=== PATIENT | female | born 1980 | race Hispanic/Latino ===

== ENCOUNTER 2018-06-02 17:38 | Emergency (ER) | payer SELFPAY ==
[2018-06-02] MEDS ORDERED: HYDROCODONE/APAP 7.5/325 MG TAB ONE (18:05)
--- NOTE | 2018-06-02 18:44 | EDPHYS ---
Physician Documentation [facility] Name: Marva Caballero Age: 38 yrs Sex: Female : 1980 Arrival Date: 06/02/2018 Time: 17:41 Bed 27 Private MD: MELVIN STILL ED Physician Christiano Negron HPI: 06/02 17:54 This 38 yrs old Female presents to ER via Ambulatory with complaints of Fall jr8 Injury. 17:54 Details of fall: The patient fell from an upright position, while standing. Onset: The jr8 symptoms/episode began/occurred acutely, today. Associated injuries: The patient sustained right ankle, decreased range of motion, painful injury, swelling. Severity of symptoms: At their worst the symptoms were moderate, in the emergency department the symptoms are unchanged. The patient has not experienced similar symptoms in the past. The patient has not recently seen a physician. Patient rolled ankle coming off of steps of porch . 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 - Social history:: Smoking status: Patient/guardian denies using tobacco. - Immunization history: Last tetanus immunization: unknown. - Ebola Screening: : Patient negative for fever greater than or equal to 101.5 degrees Fahrenheit, and additional compatible Ebola Virus Disease symptoms Patient denies exposure to infectious person Patient denies travel to an Ebola-affected area in the 21 days before illness onset No symptoms or risks identified at this time. ROS: 17:54 Eyes: Negative for injury, pain, redness, and discharge, ENT: Negative for injury, jr8 pain, and discharge, Neck: Negative for injury, pain, and swelling, Cardiovascular: Negative for chest pain, palpitations, and edema, Respiratory: Negative for shortness of breath, cough, wheezing, and pleuritic chest pain, Abdomen/GI: Negative for abdominal pain, nausea, vomiting, diarrhea, and constipation, Back: Negative for injury and pain, Skin: Negative for injury, rash, and discoloration, Neuro: Negative for headache, weakness, numbness, tingling, and seizure. 17:54 MS/extremity: Positive for decreased range of motion, pain, swelling, tenderness, of the right lateral malleolus . Exam: 17:54 Cardiovascular: Regular rate and rhythm with a normal S1 and S2. No gallops, murmurs, jr8 or rubs. Normal PMI, no JVD. No pulse deficits. Respiratory: Lungs have equal breath sounds bilaterally, clear to auscultation and percussion. No rales, rhonchi or wheezes noted. No increased work of breathing, no retractions or nasal flaring. Back: No spinal tenderness. No costovertebral tenderness. Full range of motion. Skin: Warm, dry with normal turgor. Normal color with no rashes, no lesions, and no evidence of cellulitis. Neuro: Awake and alert, GCS 15, oriented to person, place, time, and situation. Cranial nerves II-XII grossly intact. Motor strength 5/5 in all extremities. Sensory grossly intact. Cerebellar exam normal. Normal gait. 17:54 Musculoskeletal/extremity: Extremities: grossly normal except: noted in the right ankle: pain, swelling, tenderness, Swelling and tenderness over the lateral malleolus of the right ankle. Mild tenderness to anterior ankle and right fibula just superior to malleolus , ROM: limited active range of motion, limited passive range of motion, limited active range of motion due to pain, limited passive range of motion due to pain, Circulation is intact in all extremities. Sensation intact. Vital Signs: 17:53 BP 118 / 82; Pulse 92; Resp 17; Temp 98.0; Pulse Ox 100% on R/A; Pain 8/10; sg 19:00 BP 120 / 85; Pulse 85; Resp 18; Pulse Ox 100% on R/A; Pain 3/10; mg2 Shen Coma Score: 19:07 Eye Response: spontaneous(4). Verbal Response: oriented(5). Motor Response: obeys mg2 commands(6). Total: 15. Trauma Score (Adult): 19:07 Eye Response: spontaneous(1); Verbal Response: oriented(1); Motor Response: obeys mg2 commands(2); Systolic BP: > 89 mm Hg(4); Respiratory Rate: 10 to 29 per min(4); [place] Score: 15; Trauma Score: 12 Procedures: 18:42 Splinting: Splint applied to right ankle using nitesh wrap, applied by nurse. Examined by jr8 va, post splint application: neurovascular intact, 2+ distal pulses palpable, brisk capillary refill noted. Crutch training provided to patient and/or family. Return demonstration given. MDM: 17:54 Patient medically screened. jr8 18:42 Data reviewed: vital signs, nurses notes, radiologic studies, plain films, and as a jr8 result, I will discharge patient. Data interpreted: Pulse oximetry: on room air is 100 %. Interpretation: normal. Counseling: I had a detailed discussion with the patient and/or guardian regarding: the historical points, exam findings, and any diagnostic results supporting the discharge/admit diagnosis, radiology results, the need for outpatient follow up, a orthopedic surgeon, to return to the emergency department if symptoms worsen or persist or if there are any questions or concerns that arise at home. 06/02 17:54 Order name: XRAY Ankle RIGHT 3 view; Complete Time: 19:13 jr8 06/02 18:43 Order name: Nitesh Wrap; Complete Time: 19:00 8 06/02 18:43 Order name: Crutches; Complete Time: 19:00 jr8 Administered Medications: 18:01 Drug: [place] (7.5 mg-325 mg) 1 tabs Route: PO; mg2 19:07 Follow up: Response: No adverse reaction; Marked relief of symptoms mg2 Disposition: 06/02/18 18:44 Discharged to Home. Impression: Sprain of ankle. - Condition is Stable. - Discharge Instructions: Ankle Sprain. - Prescriptions for Ibuprofen 800 mg Oral Tablet - take 1 tablet by ORAL route every 12 hours As needed take with food; 20 tablet. - Medication Reconciliation Form, Thank You Letter, Antibiotic Education, Prescription Opioid Use, Work release form form. - Follow up: Griffin Kovacs MD; When: 7 - 10 days; Reason: Recheck today's complaints, Continuance of care, Re-evaluation by your physician. Addendum: 06/04/2018 08:12 Co-signature as Attending Physician, Christiano Negron MD I agree with the assessment and w a plan of care. Signatures: Dispatcher [employer] EDKyle Harden RN RN sg Oscar Santana, ELMER PAYNE 8 Migdalia, Christiano, MD MD wa Gardose, Donny, RN RN mg2 Corrections: (The following items were deleted from the chart) 06/02 19:13 18:44 06/02/2018 18:44 Discharged to Home. Impression: Sprain of ankle. Condition is mg2 Stable. Forms are Medication Reconciliation Form, Thank You Letter, Antibiotic Education, Prescription Opioid Use. Follow up: Griffin Kovacs; When: 7 - 10 days; Reason: Recheck today's complaints, Continuance of care, Re-evaluation by your physician. jr8
--- NOTE | 2018-06-02 18:44 | ER ---
Nurse's Notes [facility] Name: Mrava Caballero Age: 38 yrs Sex: Female : 1980 Arrival Date: 06/02/2018 Time: 17:41 Bed 27 Private MD: MELVIN STILL Diagnosis: Sprain of ankle Presentation: 06/02 17:50 Presenting complaint: Patient states: We are working on the new porch for the house, so sg I dont have any steps at this time. I was sitting in the door frame, my feet just a few inches off the ground, I must have rolled my Right ankle pretty good, now I have my Right ankle that huts with pain radiating up into my right garzon and right knee. Transition of care: patient was not received from another setting of care. Onset of symptoms was June 02, 2018. Risk Assessment: Do you want to hurt yourself or someone else? Patient reports no desire to harm self or others. Initial Sepsis Screen: Does the patient meet any 2 criteria? No. Patient's initial sepsis screen is negative. Does the patient have a suspected source of infection? No. Patient's initial sepsis screen is negative. Care prior to arrival: None. 17:50 Method Of Arrival: Ambulatory sg 17:50 Acuity: LAURA 4 sg 19:08 Mechanism of Injury: Fall down 1 steps approximately .5 feet. Trauma event details: mg2 Injury occurred in the [facility], Injury occurred: at home. Injury occurred: May 2018. 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 - Social history:: Smoking status: Patient/guardian denies using tobacco. - Immunization history: Last tetanus immunization: unknown. - Ebola Screening: : Patient negative for fever greater than or equal to 101.5 degrees Fahrenheit, and additional compatible Ebola Virus Disease symptoms Patient denies exposure to infectious person Patient denies travel to an Ebola-affected area in the 21 days before illness onset No symptoms or risks identified at this time. Screenin:57 Abuse screen: Denies threats or abuse. Denies injuries from another. Nutritional mg2 screening: No deficits noted. Tuberculosis screening: No symptoms or risk factors identified. Fall Risk Fall in past 12 months (25 points). Gait- Impaired (20 pts.). Primary Survey: 18:02 A: Airway: patent. Breathing/Chest: Respiratory pattern: regular, Respiratory effort: mg2 spontaneous, unlabored. Circulation: Pulses: palpable right dorsalis pedis artery. Skin color: pink. Disability Alert. 19:08 Reassessment Airway Airway Patent Breathing/Chest Respiratory pattern Regular mg2 Circulation Pulses Palpable Disability Alert. Secondary Survey: 18:02 HEENT: No deficits noted. Gastrointestinal: No deficits noted. : No deficits noted. mg2 Musculoskeletal: Capillary refill < 3 seconds, Swelling present in right ankle. Injury Description: swelling. Assessment: 17:58 General: Appears uncomfortable, Behavior is calm, cooperative, appropriate for age. mg2 Pain: Complains of pain in right ankle Pain radiates to to right knee Pain currently is 10 out of 10 on a pain scale. Quality of pain is described as aching, Pain began suddenly, 30 min ago. Is intermittent, Alleviated by rest, repositioning, cold application, Aggravated by increased activity, repositioning, weight bearing. Neuro: Level of Consciousness is awake, alert, obeys commands, Oriented to person, place, time, situation. Cardiovascular: Capillary refill < 3 seconds Patient's skin is warm and dry. Respiratory: Airway is patent Respiratory effort is even, unlabored, Respiratory pattern is regular, symmetrical. GI: No signs and/or symptoms were reported involving the gastrointestinal system. : No signs and/or symptoms were reported regarding the genitourinary system. EENT: No signs and/or symptoms were reported regarding the EENT system. Derm: Skin is intact, Skin is pink, warm \T\ dry. normal. Musculoskeletal: Circulation, motion, and sensation intact. Swelling present in right ankle. Injury Description: swelling. 19:00 Reassessment: Patient appears in no apparent distress at this time. Patient and/or mg2 family updated on plan of care and expected duration. Pain level reassessed. Patient is alert, oriented x 3, equal unlabored respirations, skin warm/dry/pink. Vital Signs: 17:53 BP 118 / 82; Pulse 92; Resp 17; Temp 98.0; Pulse Ox 100% on R/A; Pain 8/10; sg 19:00 BP 120 / 85; Pulse 85; Resp 18; Pulse Ox 100% on R/A; Pain 3/10; mg2 Shen Coma Score: 19:07 Eye Response: spontaneous(4). Verbal Response: oriented(5). Motor Response: obeys mg2 commands(6). Total: 15. Trauma Score (Adult): 19:07 Eye Response: spontaneous(1); Verbal Response: oriented(1); Motor Response: obeys mg2 commands(2); Systolic BP: > 89 mm Hg(4); Respiratory Rate: 10 to 29 per min(4); [place] Score: 15; Trauma Score: 12 ED Course: 17:41 Patient arrived in ED. rg4 17:41 MELVIN STILL is Private Physician. rg4 17:51 Donny Aguirre, DAISY is Primary Nurse. mg2 17:51 [facility] jr8 17:51 Christiano Negron MD is Attending Physician. jr8 17:52 Triage completed. sg 17:52 Arm band placed on. sg 17:57 Patient has correct armband on for positive identification. Bed in low position. Call mg2 light in reach. Side rails up X 1. Door closed. Warm blanket given. Ice pack to injury. Elevated right foot. 18:37 XRAY Ankle RIGHT 3 view In Process Unspecified. EDMS 18:43 Griffin Kovacs MD is Referral Physician. jr8 19:07 No provider procedures requiring assistance completed. Patient did not have IV access mg2 during this emergency room visit. Crutch training done. Nitesh wrap to right ankle. 19:08 Patient maintains SpO2 saturation greater than 95% on room air. Thermoregulation: warm mg2 blanket given to patient. Administered Medications: 18:01 Drug: [place] (7.5 mg-325 mg) 1 tabs Route: PO; mg2 19:07 Follow up: Response: No adverse reaction; Marked relief of symptoms mg2 Intake: 19:07 PO: 0ml; Total: 0ml. mg2 Outcome: 18:44 Discharge ordered by . fouzia 19:10 Discharged to home via wheelchair. mg2 19:10 Condition: stable 19:11 Discharge instructions given to patient, Instructed on discharge instructions, follow mg2 up and referral plans. medication usage, Demonstrated understanding of instructions, follow-up care, medications, crutch walking, Prescriptions given X 1. 19:12 Patient's length of stay was not longer than 2 hours. mg2 19:13 Patient left the ED. mg2 Signatures: Dispatcher [employer] EDMS Kyle Mcdonald RN RN Oscar Santana PA PA jr8 Garcia, Rubi rg4 Donny Aguirre RN RN mg2 Corrections: (The following items were deleted from the chart) 19:12 19:10 Patient's length of stay in the Emergency Department was greater than 2 hours. mg2mg2
--- NOTE | 2018-06-02 19:08 | RAD REPORT ---
EXAM DESCRIPTION: RAD - Ankle Right 3 View - 06/02/2018 6:37 pm CLINICAL HISTORY: Ankle pain, twisting injury COMPARISON: None. FINDINGS: No fracture, dislocation or periosteal reaction. No joint effusion seen. No joint space na rrowing. Lateral soft tissue swelling is present. IMPRESSION: Soft tissue swelling with no right ankle fracture.
[2018-06-02 19:17] VITALS: TEMP 98; O2SAT 100
[2018-06-02 19:18] VITALS: BP 120/85
== END 2018-06-02 19:13 | disposition home or self-care (01) ==
LOC: ER 17:38
DX: S93.401A Sprain of unspecified ligament of right ankle, initial encounter (principal); W17.89XA Other fall from one level to another, initial encounter; Y93.01 Activity, walking, marching and hiking; Y92.89 Other specified places as the place of occurrence of the external cause
CPT/HCPCS: 99284

== ENCOUNTER 2024-02-02 14:15 | Emergency (ER) | payer SELFPAY ==
--- OUTSIDE RECORDS SUMMARY | 2024-02-02 14:18 | XMS REPORT | Continuity of Care Document ---
Author Name Unknown Address [address] [place] [id number] [facility] thconnect Address [address] [place] [address] Care Team Providers Care [employer]veler Name Role Phone GIAN Attending Clinician Unavailable LUCAS KEATING Attending Clinician Unavailable IFEANYI MCFARLAND Attending Clinician Unavailable GIAN Admitting Clinician Unavailable Encounters Start Date/Time End Date/Time Encounter Type Admission Type Attending Clinicians Care Facility Care Department Encounter ID Source 2023-10-14 09:30:34 2023-10-14 09:30:34 Outpatient [facility] [id number] Messi Karime Bharath 2023-07-13 10:57:36 2023-07-13 10:57:36 Outpatient [facility] [id number] Messi Sinha 2022-04-24 11:50:00 2022-04-24 11:50:00 Outpatient WENCESLAO SOLIMAN [facility] [id number] [facility] 1999-02-13 14:13:00 1999-02-13 14:13:00 Outpatient LUCAS SALAZAR [facility] [id number] [facility] 1999-01-13 08:47:00 1999-01-13 08:47:00 Outpatient IFEANYI BUSBY [facility] [id number] [facility] 1998-12-12 11:48:00 1998-12-12 11:48:00 Outpatient IFEANYI BUSBY [facility] [id number] [facility] Results Test Description Test Time Test Comments Results Result Co mments Source
--- NOTE | 2024-02-02 15:46 | RAD REPORT ---
EXAM DESCRIPTION: RAD - Tib Fib Left - 02/02/2024 2:47 pm CLINICAL HISTORY: PAIN COMPARISON: No comparisons TECHNIQUE: Left tibia and fibula, 2 views. FINDINGS: No fracture is identified. There is no dislocation or periosteal reaction noted. No foreign body or other soft tissue abnormalit y. IMPRESSION: Negative left tibia & fibula examination.
--- NOTE | 2024-02-02 15:46 | RAD REPORT ---
EXAM DESCRIPTION: RAD - Wrist Left 3 View - 02/02/2024 2:47 pm CLINICAL HISTORY: PAIN COMPARISON: No comparisons TECHNIQUE: Left wrist, 3 views. FINDINGS: No acute fracture. There is no dislocation or periosteal reaction noted. No suspicious bon y finding. No foreign body or other soft tissue abnormality. IMPRESSION: Negative left wrist examination.
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
[2024-02-02] MEDS ORDERED: HYDROCODONE/APAP 5/325 MG TAB ONE (15:53)
--- NOTE | 2024-02-02 17:11 | RAD REPORT ---
EXAM DESCRIPTION: RAD - Forearm Left - 02/02/2024 4:23 pm CLINICAL HISTORY: PAIN COMPARISON: No comparisons TECHNIQUE: Left forearm, 2 views. FINDINGS: Mildly displaced fracture at the base of the radial styloid process best appreciated on th e lateral view. There is no dislocation or periosteal reaction noted. No foreign body or other soft tissue abnormality. IMPRESSION: Mildly displaced distal radius fracture as above.
[2024-02-02 18:19] VITALS: BP 125/72; TEMP 98; O2SAT 100
== END 2024-02-02 18:00 | disposition home or self-care (01) ==
LOC: ER 14:15
DX: S52.502A Unspecified fracture of the lower end of left radius, initial encounter for closed fracture (principal); V49.49XA Driver injured in collision with other motor vehicles in traffic accident, initial encounter

== ENCOUNTER 2024-10-07 15:06 | Emergency (ER) | payer SELFPAY ==
[2012-06-29 21:42] VITALS: BP 110/64
--- OUTSIDE RECORDS SUMMARY | 2024-10-07 15:09 | XMS REPORT | Continuity of Care Document ---
Author Name Unknown Address [address] [facility] [address] [place] [address] [facility] Address [address] [facility] [address] [place] [address] Care Team Providers Care Piped Pocket Machine Operator Name Role Phone Zahra Zelaya Primary Care Physician [phone] BRUCE SHETH Attending Clinician UnavailJOAQUÍN Vaca Attending Clinician UnavailJOAQUÍN Vaca Attending Clinician UnavailHALLIE [place] Attending Clinician Unavailable Destiny DIE HOLDERHallie Attending Clinician [phone] Joaquín Reyes DO Attending Clinician [phone] ANITHA FERNÁNDEZ Attending Clinician Unavailable Lab, Ang - Db Attending Clinician Unavailable Anitha Fernández MD Attending Clinician [phone] Therapist, Adc Respiratory Attending Clinician U Monica Blackwood Attending Clinician U Domi Ca Attending Clinician UnavailPRESTON Sosa Attending Clinician Unavailable Johnny Fonseca MD Attending Clinician [phone] KAYLEIGH HERNANDEZ Attending Clinician UnavailKAYLEIGH Velasco Attending Clinician UnavailDomi Limon Attending Clinician UnavailJOHNNY Fisher Attending Clinician Unavailable Johnny Fonseca MD Attending Clinician [phone] Unknown, Attending Attending Clinician Unavailab GISELLE Trevino Attending Clinician Unavailable GISELLE CARDOZA Attending Clinician Unavailable HANH CHOI Attending Clinician Unavailable Hallie Michael Attending Clinician + [phone] Anitha Fernández MD Attending Clinician + [phone] Lab, Ang - Db Attending Clinician Unavailable GIAN Attending Clinician Unavailable JOSELIN MCGINNIS Attending Clinician Unavailable LUCAS KEATING Attending Clinician Unavailable IFEANYI MCFARLAND Attending Clinician Unavailable JOAQUÍN REYES Admitting Clinician Unavailab HALLIE Horta Admitting Clinician Unavailable GIAN Admitting Clinician Unavailable Payers Payer Name Policy Type Policy Number Effective Date Expirati on Date Source [employer] [place] [facility] [id number] 2024 00:00:00 [facility] 0-100% [id number] 2013 00:00:00 2016 00:00:00 Problems Condition Name Condition Details Condition Category Status Onset Date Resolution Date Last Treatment Date Treating Clinician Comments Source History of COVID-19 History of COVID-19 Disease Active 03-30 00:00: 00 [facility] Chronic cough Chronic cough Disease Active 03-30 00:00: 00 [facility] Cervical high risk human papillomav irus (HPV) DNA test positive Cervical high risk human papillomav irus (HPV) DNA test positive Disease Active 01-05 00:00: 00 [facility] Allergies, Adverse Reactions, Alerts Allergy Name Allergy Type Status Severity Reaction(s) Onset Date Inactive Date Treating Clinician Comments Source NO KNOWN ALLERGIE S Drug Class Active [facility] Social History Social Habit Start Date Stop Date Quantity Comments Source [facility] Alcoholic beverage intake 2024-08-08 00:00:00 2024-08-08 00:00:00 Current drinker of alcohol (finding) [facility] History of Social function 2024-06-13 00:00:00 2024-06-13 00:00:00 [facility] Tobacco use and exposure 2013-12-27 00:00:00 2013-12-27 00:00:00 Smokeless tobacco non-user [facility] Alcohol Comment 2013-12-27 00:00:00 2013-12-27 00:00:00 socially [facility] Sex assigned at 1980 00:00:00 1980 00:00:00 [facility] Smoking Status Start Date Stop Date Source Never smoked tobacco [facility] Medications Ordered Medication Name Filled Medication Name Start Date Stop Date Current Medication? Ordering Clinician Indication Dosage Frequency Signature (SIG) Comments Components Source budesonide- formoteroL (SYMBICORT) 160-4.5 mcg/actuati on inhaler 06-13 00:00: 00 Yes [id number] 2{puff} Inhale 2 Puffs in the morning and 2 Puffs in the evening. [facility] albuterol 90 mcg/actuati on inhaler 06-13 00:00: 00 Yes [id number] 2{puff} Inhale 2 Puffs every 6 (six) hours as needed for Wheezing or Shortness of Breath. [facility] albuterol 90 mcg/actuati on inhaler 05-09 00:00: 00 Yes [id number] 2{puff} Inhale 2 Puffs every 6 (six) hours as needed for Shortness of Breath, Wheezing or Bronchospa sm. [facility] promethazin e-dextromet horphan 6.25-15 mg/5 mL syrup 05-09 00:00: 00 Yes [id number] 5mL Take 5 mL by mouth 4 (four) times daily as needed for Cough. [facility] predniSONE 20 mg tablet 05-09 00:00: 00 05-15 04:59 :00 No [id number] 20mg Take 1 tablet by mouth in the morning for 5 days. [facility] Cholecalcif mireya, Vitamin D3, (VITAMIN D3) 125 mcg (5,000 unit) tablet 04-28 00:00: 00 05-29 04:59 :00 No [id number] 5000U Take 1 tablet by mouth in the morning for 30 days. [facility] omeprazole (PRILOSEC OTC) 20 mg tablet 20 00:00: 00 Yes [id number] 20mg Take 1 tablet by mouth in the morning. [facility] tiZANidine 4 mg tablet 14 00:00: 00 08-08 00:00 :00 No TAKE 1 TABLET BY MOUTH EVERY DAY NEEDED [facility] BREYNA 80-4.5 mcg/actuati on inhaler 03-23 00:00: 00 Yes INHALE 2 PUFFS TWICE A DAY [facility] ibuprofen 800 mg tablet 03-23 00:00: 00 08-08 00:00 :00 No 800mg Take 1 tablet by mouth in the morning and 1 tablet in the evening. [facility] Symbicort 80 mcg-4.5 mcg/actuati on HFA aerosol inhaler 02-23 00:00: 00 Yes 2mcg/ac tuation Messi Sinha prednisone 20 mg tablet 02-23 00:00: 00 Yes 1mg Messi Sinha hydrocodone bitartrate ER 10 mg capsule, oral only, extended rel 12 hr 02-23 00:00: 00 Yes 1mg Messi Sinha Bromfed DM 2 mg-30 mg-10 mg/5 mL oral syrup 02-23 00:00: 00 Yes 10mg/5 mL Messi Sinha TAKE 1 TABLET BY MOUTH FOUR TIMES DAILY 10-14 00:00: 00 Yes Messi Sinha TAKE 1 TABLET BY MOUTH TWICE DAILY 10-14 00:00: 00 Yes Messi Sinha INHALE 1-2 PUFFS EVERY 4-6 HOURS NEEDED AND DIRECTED. 10-14 00:00: 00 02-01 00:00 :00 No [id number] Messi Sinha TAKE 1 TABLET DAILY. 10-14 00:00: 00 02-01 00:00 :00 No 10 Messi Sinha TAKE 1 TABLET BY MOUTH FOUR TIMES DAILY 2022-10 00:00: 00 Yes Messi Sinha TAKE 1 TABLET BY MOUTH EVERY DAY 2023-1 1-28 00:00: 00 Yes Messi Sinha 1 TABLET TWICE A DAY 0 9-28 00:00: 00 Yes Messi Sinha TAKE 1 TABLET BY MOUTH EVERY DAY 0 - 00:00: 00 Yes Messi Sinha 1 TABLET TWICE A DAY 0 - 00:00: 00 Yes Messi Sinha TAKE 1 TABLET BY MOUTH THREE TIMES A DAY 0 - 00:00: 00 Yes Messi Sinha TAKE 1 TABLET BY MOUTH EVERY DAY 0 - 00:00: 00 Yes Messi Sinha TAKE 1 TABLET BY MOUTH TWICE A DAY 0 - 00:00: 00 Yes Messi Sinha TAKE 1 TABLET BY MOUTH EVERY DAY 0 01-11 00:00: 00 Yes Messi Sinha TAKE 1 TABLET BY MOUTH TWICE A DAY 0 - 00:00: 00 Yes Messi Sinha TAKE 1 TABLET BY MOUTH EVERY DAY 0 - 00:00: 00 Yes Messi Sinha TAKE 1 TABLET BY MOUTH TWICE A DAY 0 - 00:00: 00 Yes Messi Sinha 1 TABLET NEEDED ORAL 2 TIMES A DAY 30 DAYS 0 1- 00:00: 00 Yes Messi Sinha 1 TABLET WITH FOOD OR MILK NEEDED ORALLY TWO TIMES A DAY EVERY 12 HRS 30 DAYS 0 1- 00:00: 00 Yes Messi Sinha TAKE 1 TABLET NEEDED ORAL 2 TIMES A DAY 30 DAYS 2021-10- 00:00: 00 Yes Messi Sinha 1 TABLET WITH FOOD OR MILK NEEDED ORALLY TWO TIMES A DAY EVERY 12 HRS 30 DAYS 2021-10- 00:00: 00 Yes Messi Sinha ORTHO TRI-CYCLEN- 28 (ORTHO TRI-CYCLEN, 28,) 0.18/0.215/ 0.25 mg-35 mcg (28) tablet 12-27 00:00: 00 03-30 00:00 :00 No [id number] 1{tbl} Take 1 Tab by mouth daily. [facility] Immunizations Ordered Immunization Name Filled Immunization Name Date Status Comments Source TDAP 2013-12-27 00:00:00 Completed [facility] TD, NOS 1995-10-11 00:00:00 Completed TD, NOS Unknown Completed [facility] TDAP Unknown Completed [facility] TD, NOS Unknown Completed [facility] TDAP Unknown Completed [facility] TD, NOS Unknown Completed [facility] TDAP Unknown Completed [facility] TD, NOS Unknown Completed [facility] TDAP Unknown Completed [facility] TD, NOS Unknown Completed [facility] TDAP Unknown Completed [facility] TD, NOS Unknown Completed [facility] TDAP Unknown Completed [facility] TD, NOS Unknown Completed [facility] TDAP Unknown Completed [facility] TD, NOS Unknown Completed [facility] TDAP Unknown Completed [facility] TD, NOS Unknown Completed [facility] TDAP Unknown Completed [facility] TD, NOS Unknown Completed [facility] TDAP Unknown Completed [facility] TD, NOS Unknown Completed [facility] TDAP Unknown Completed [facility] TD, NOS Unknown Completed [facility] TDAP Unknown Completed [facility] TD, NOS Unknown Completed [facility] TDAP Unknown Completed [facility] TD, NOS Unknown Completed [facility] TDAP Unknown Completed [facility] TD, NOS Unknown Completed [facility] TDAP Unknown Completed [facility] TD, NOS Unknown Completed [facility] TDAP Unknown Completed [facility] TD, NOS Unknown Completed [facility] TDAP Unknown Completed [facility] TD, NOS Unknown Completed [facility] TDAP Unknown Completed [facility] TD, NOS Unknown Completed [facility] TDAP Unknown Completed [facility] TD, NOS Unknown Completed [facility] TDAP Unknown Completed [facility] TD, NOS Unknown Completed [facility] TDAP Unknown Completed [facility] TD, NOS Unknown Completed [facility] TDAP Unknown Completed [facility] Vital Signs Vital Name Observation Time Observation Value Comments S ource Systolic blood pressure 2024-08-08 15:11:00 116 mm[Hg] [facility] Diastolic blood pressure 2024-08-08 15:11:00 74 mm[Hg] [facility] Heart rate 2024-08-08 15:11:00 83 /min [facility] Respiratory rate 2024-08-08 15:11:00 18 /min [facility] Body height 2024-08-08 15:11:00 157.5 cm [facility] Body weight 2024-08-08 15:11:00 87.272 kg [facility] BMI 2024-08-08 15:11:00 35.19 kg/m2 [facility] Oxygen saturation in Arterial blood by Pulse oximetry 2024-08-08 15:11:00 96 /min [facility] Systolic blood pressure 2024-06-13 16:10:00 113 mm[Hg] [facility] Diastolic blood pressure 2024-06-13 16:10:00 76 mm[Hg] [facility] Heart rate 2024-06-13 16:10:00 87 /min [facility] Respiratory rate 2024-06-13 16:10:00 16 /min [facility] Body height 2024-06-13 16:10:00 154.9 cm [facility] Body weight 2024-06-13 16:10:00 89.132 kg [facility] BMI 2024-06-13 16:10:00 37.13 kg/m2 [facility] Oxygen saturation in Arterial blood by Pulse oximetry 2024-06-13 16:10:00 100 /min [facility] Systolic blood pressure 2024-05-09 15:15:00 137 mm[Hg] [facility] Diastolic blood pressure 2024-05-09 15:15:00 69 mm[Hg] [facility] Heart rate 2024-05-09 15:15:00 91 /min [facility] Body temperature 2024-05-09 15:15:00 36.67 Maliha [facility] Respiratory rate 2024-05-09 15:15:00 18 /min [facility] Body weight 2024-05-09 15:15:00 86.047 kg [facility] BMI 2024-05-09 15:15:00 34.70 kg/m2 [facility] Oxygen saturation in Arterial blood by Pulse oximetry 2024-05-09 15:15:00 98 /min [facility] Systolic blood pressure 2024-04-28 20:27:00 122 mm[Hg] [facility] Diastolic blood pressure 2024-04-28 20:27:00 85 mm[Hg] [facility] Heart rate 2024-04-28 20:27:00 87 /min [facility] Body temperature 2024-04-28 20:27:00 36.89 Maliha [facility] Body height 2024-04-28 20:27:00 157.5 cm [facility] Body weight 2024-04-28 20:27:00 87.091 kg [facility] BMI 2024-04-28 20:27:00 35.12 kg/m2 [facility] Oxygen saturation in Arterial blood by Pulse oximetry 2024-04-28 20:27:00 97 /min [facility] Systolic blood pressure 2024-03-30 15:44:00 96 mm[Hg] [facility] Diastolic blood pressure 2024-03-30 15:44:00 69 mm[Hg] [facility] Heart rate 2024-03-30 15:44:00 66 /min [facility] Body temperature 2024-03-30 15:44:00 36.67 Maliha [facility] Respiratory rate 2024-03-30 15:44:00 18 /min [facility] Body height 2024-03-30 15:44:00 157.5 cm [facility] Body weight 2024-03-30 15:44:00 86.456 kg [facility] BMI 2024-03-30 15:44:00 34.86 kg/m2 [facility] Body Temperature 2024-02-24 10:02:00 97.60 degrees Messi F Bharath Heart Rate 2024-02-24 10:02:00 90.00 /min Ramya en F Bharath Respiratory Rate 2024-02-24 10:02:00 18.00 /min Messi F Bharath BP Systolic 2024-02-24 10:02:00 120 mm[Hg] Step hen F Bharath BP Diastolic 2024-02-24 10:02:00 79 mm[Hg] Jairo phen F Bharath Weight Measured 2024-02-24 10:02:00 186.80 pounds Messi F Bharath Height Measured 2024-02-24 10:02:00 62.00 inches Messi F Bharath BP Systolic 2023-10-14 09:45:00 114 mm[Hg] Step hen F Bharath BP Diastolic 2023-10-14 09:45:00 80 mm[Hg] Jairo phen F Bharath Weight Measured 2023-10-14 09:45:00 186.40 pounds Messi F Bharath Height Measured 2023-10-14 09:45:00 62.00 inches Messi F Bharath Body Temperature 2023-10-14 09:45:00 98.10 degrees Messi F Bharath Heart Rate 2023-10-14 09:45:00 83.00 /min Ramya en F Bharath Respiratory Rate 2023-10-14 09:45:00 17.00 /min Messi F Bharath BP Systolic 2023-10-14 09:41:00 114 mm[Hg] Step hen F Bharath BP Diastolic 2023-10-14 09:41:00 80 mm[Hg] Jairo phen F Bharath Weight Measured 2023-10-14 09:41:00 186.40 pounds Messimelba Sinha Height Measured 2023-10-14 09:41:00 62.00 inches Messi Sinha Body Temperature 2023-10-14 09:41:00 98.10 degrees Messi F Bharath Heart Rate 2023-10-14 09:41:00 83.00 /min Ramya en F Bharath Respiratory Rate 2023-10-14 09:41:00 17.00 /min Messi F [facility]harath Procedures Procedure Date / Time Performed Performing Clinicia n Source ANTI-NUCLEAR ANTIBODY SCREEN 2024-08-03 16:42:00 Joaquín Reyes [facility] ANTI-NUCLEAR ANTIBODY TITER 2024-08-03 16:42:00 Joaquín Reyes [facility] ANCA SCREEN 2024-08-03 16:42:00 [facility] 2024-06-28 14:40:00 Joaquín Reyes [facility] POCT MOLECULAR FLU 2024-05-09 15:12:00 Unknown, Attend ing [facility] XR CHEST 2 VW 2024-03-30 16:37:40 [facility] Encounters Start Date/Time End Date/Time Encounter Type Admission Type Attending [facility] Care Facility Care Department Encounter ID Source 2024-09-28 10:30:00 2024-09-28 10:30:00 Outpatient R HALLIE DIXON [facility] [id number] [facility] 2024-08-15 00:00:00 2024-08-15 12:35:28 [facility]phone [facility] 1.2.840.114 350.1.13.10 4.2.7.2.686 [id number] [facility] 2024-08-08 10:00:00 2024-08-08 10:47:17 Outpatient R JOAQUÍN REYES SHIHIJulia [facility] [id number] [facility] 2024-08-08 10:00:00 2024-08-08 10:47:17 Office Visit Joaquín Reyes [facility] BUILDING 1.2.840.114 350.1.13.10 4.2.7.2.686 [id number] [facility] 2024-08-07 00:00:00 2024-08-07 16:25:06 Case Management Joaquín Reyes [facility] BUILDING 1.2.840.114 350.1.13.10 4.2.7.2.686 [id number] [facility] 2024-08-03 13:15:00 2024-08-03 13:15:00 Outpatient ANITHA ELLIS [facility] [id number] [facility] 2024-08-03 13:15:00 2024-08-03 13:15:00 Tobacco Baler Visit Lab, Anitha Gregorio, [facility] BUILD[facility] 1.2840.114 350.1.13.10 4.2.7.2.686 [id number] [facility] 2024-07-21 00:00:00 2024-07-21 12:28:53 Telephone Joaquín Reyes [facility] BUILD[facility] 1.840.114 350.1.13.10 4.2.7.2.686 [id number] [facility] 2024-07-18 08:00:00 2024-07-18 09:00:00 Tobacco Baler Visit Therapist, [facility] Respiratory Joaquín Reyes [facility] 1.840.114 350.1.13.10 4.2.7.2.686 [id number] [facility] 2024-07-18 08:00:00 2024-07-18 08:00:00 Outpatient R JOAQUÍN REYES SHIWAN [facility] [id number] [facility] 2024-07-03 00:00:00 2024-07-03 17:45:49 Telephone SarikamamadouHallie [facility] OFFICE BUILD[facility] 1.840.114 350.1.13.10 4.2.7.2.686 [id number] [facility] 2024-06-28 09:24:32 2024-06-28 23:59:00 Outpatient R JOAQUÍN REYES SHIWAN [facility] [id number] [facility] 2024-06-28 09:10:00 2024-06-28 23:59:00 [facility] 1.840.114 350.1.13.10 4.2.7.2.686 [id number] [facility] 2024-06-28 00:00:00 2024-06-28 11:16:03 Case Management Joaquín Reyes [facility] 1..840.114 350.1.13.10 4.2.7.2.686 [id number] [facility] 2024-06-26 00:00:00 2024-06-26 09:58:45 Telephone Monica Zavala Kassandra [facility] 1.840.114 350.1.13.10 4.2.7.2.686 [id number] [facility] 2024-06-16 00:00:00 2024-06-16 08:20:54 Telephone Domi Cam Melody A [facility] 1.840.114 350.1.13.10 4.2.7.2.686 [id number] [facility] 2024-06-13 11:00:00 2024-06-13 11:46:15 Office Visit Joaquín Reyes [facility] 1..840.114 350.1.13.10 4.2.7.2.686 [id number] [facility] 2024-06-13 11:00:00 2024-06-13 11:00:00 Outpatient R JOAQUÍN REYES SHIWAN [facility] [id number] [facility] 2024-06-08 14:00:00 2024-06-08 14:00:00 Outpatient R PRESTON SCHWARTZ [facility] [id number] [facility] 2024-06-05 00:00:00 2024-06-05 07:53:22 [facility] 1..840.114 350.1.13.10 4.2.7.2.686 [id number] [facility] 2024-05-30 00:00:00 2024-05-30 14:39:50 Telephone Eri [facility] 1.2.840.114 350.1.13.10 4.2.7.2.686 [id number] [facility] 2024-05-15 10:15:00 2024-05-15 10:15:00 Outpatient KAYLEIGH CHARLES CRAIG [facility] [id number] [facility] 2024-05-10 00:00:00 2024-05-10 08:21:[address] [facility] 1.2.840.114 350.1.13.10 4.2.7.2.686 [id number] [facility] 2024-05-10 00:00:00 2024-05-10 08:20:46 Telephone Domi Cam Domi Nur [facility] 1.2840.114 350.1.13.10 4.2.7.2.686 [id number] [facility] 2024-05-09 10:20:00 2024-05-09 10:32:30 Outpatient JOHNNY QUINTANILLA [facility] [id number] [facility] 2024-05-09 10:20:00 2024-05-09 10:32:30 Urgent Care Johnny Fonseca Unknown, Attending [facility] 1.2.840.114 350.1.13.10 4.2.7.2.686 [id number] [facility] 2024-05-09 09:30:00 2024-05-09 09:30:00 Outpatient KAYLEIGH CHARLES CRAIG [facility] [id number] [facility] 2024-04-28 15:09:57 2024-04-28 23:59:00 Outpatient R GISELLE CARDOZA GISELLE CARDOZA [facility] [id number] [facility] 2024-04-28 15:09:57 2024-04-28 23:59:00 Hospital Encounter Giselle Cardoza [facility] 1.2.840.114 350.1.13.10 4.2.7.2.686 [id number] [facility] 2024-04-28 15:00:00 2024-04-28 16:16:18 Office Visit Giselle Cardoza [facility] 1.2.840.114 350.1.13.10 4.2.7.2.686 [id number] [facility] 2024-04-28 00:00:00 2024-04-28 08:04:33 Telephone Giselle Cardoza [facility] 1.2.840.114 350.1.13.10 4.2.7.2.686 [id number] [facility] 2024-04-18 14:00:00 2024-04-18 14:00:00 Outpatient R GISELLE CARDOZA MARCUS CARDOZAJORGE ALBERTO [facility] [id number] [facility] 2024-04-12 13:30:00 2024-04-12 13:30:00 Outpatient R HANH CHOI [facility] [id number] [facility] 2024-04-06 10:36:08 2024-04-06 23:59:00 Outpatient R HALLIE DIXON [facility] [id number] [facility] 2024-04-06 10:36:08 2024-04-06 10:36:08 Hospital Encounter Hallie Dixon [facility] 1.2.840.114 350.1.13.10 4.2.7.2.686 [id number] [facility] 2024-04-05 00:00:00 2024-04-05 14:17:05 Telephone Domi Cam [facility] 1.2.840.114 350.1.13.10 4.2.7.2.686 [id number] [facility] 2024-03-28 00:00:00 2024-04-04 08:53:41 Telephone Reed Anitha [facility] OFFICE BUILD[facility] 1.2.840.114 350.1.13.10 4.2.7.2.686 [id number] [facility] 2024-03-30 00:00:00 2024-03-31 07:42:17 [facility] BUILD[facility] 1.2840.114 350.1.13.10 4.2.7.2.686 [id number] [facility] 2024-03-30 11:19:36 2024-03-30 23:59:00 [facility] BUILD[facility] 1.2.840.114 350.1.13.10 4.2.7.2.686 [id number] [facility] 2024-03-30 11:19:35 2024-03-30 23:59:00 Hospital Encounter [facility] BU[facility] 1.2.840.114 350.1.13.10 4.2.7.2.686 [id number] [facility] 2024-03-30 11:45:00 2024-03-30 12:00:00 Tobacco Baler Visit Lab, Néstor Yang [facility] MED[facility] OFF[facility] BUILD[facility] 1.2.840.114 350.1.13.10 4.2.7.2.686 [id number] [facility] 2024-03-30 10:30:00 2024-03-30 11:13:18 Office Visit Hallie Dioxn [facility] MED[facility] OFF[facility] BUILDING 1.2.840.114 350.1.13.10 [id number] [id number] [facility] 2024-03-30 10:30:00 2024-03-30 11:13:18 Outpatient R HALLIE [facility] [id number] [facility] 2024-02-24 10:02:22 2024-02-24 10:02:22 Outpatient SFA SFA [id number] Messi Sinha 2024-02-24 00:00:00 2024-02-24 00:00:00 Outpatient Visit SFA [id number] Messi Sinha 2023-10-14 09:30:34 2023-10-14 09:30:34 Outpatient SFA SFA [id number] Messi Sinha 2023-10-14 00:00:00 2023-10-14 00:00:00 Outpatient Visit SFA [id number] Messi Sinha 2023-07-13 10:57:36 2023-07-13 10:57:36 Outpatient SFA SFA [id number] Messi Sinha 2022-04-24 11:50:00 2022-04-24 11:50:00 Outpatient [facility] [id number] 2013-12-27 10:00:00 2013-12-27 13:04:29 Outpatient Saundra MCGINNIS JOSELIN [facility] [id number] [facility] 1999-02-13 14:13:00 1999-02-13 14:13:00 Outpatient LUCAS SALAZAR [facility] [id number] [facility] 1999-01-13 08:47:00 1999-01-13 08:47:00 Outpatient IFEANYI BUSBY [facility] [id number] [facility] 1998-12-12 11:48:00 1998-12-12 11:48:00 Outpatient IFEANYI BUSBY [facility] [id number] [facility] Results Test Description Test Time Test Comments Results Result Co mments Source [facility] [id number] 18:39:50* Test Item Value Reference Range Interpretation Comme nts Myeloperoxidase (MPO) Antibodies, IgG Interpretation (test code = 97662-1) Negative Negative Proteinase 3 (PR3) Antibodies, IgG Interpretation (test code = 47782-2) Negative Negative Myeloperoxidase (MPO) Antibodies, IgG (test code = 8219969440) <=3.5 Proteinase 3 (PR3) Antibodies, IgG (test code = 6692633376) <=2.0 KRISTOPHER (test code = KRISTOPHER) Test ?Unit ? Negative ? ? ? Equivocal ? Positive Rhea MPOs ? ? ? U/ml ? <3.5 ? 3.5-5.0 ? >5 Rhea PR3s ? ? ? U/ml ? <2.0 ? 2.0-3.0 ? >3.0 In case of equivocal results, we recommend to retest the patient after 8 - 12 weeks. Lab Interpretation (test code = 90197-1) Normal [facility] Antib[facility] [id number] 22:14:18* Test Item Value Reference Range Interpretation Comme nts TRENTON (test code = 2858091912) Positive Negative A KRISTOPHER (test code = KRISTOPHER) Negative: ?No Anti-Nuclear Antibodies detected by IFA. Positive: ?TRENTON IFA screen performed with a 1:80 dilution in adults and a 1:40 dilution in pediatrics. ?A titer is performed and reported separately when the TRENTON is "Positive" or when "Cytoplasmic staining is observed." Lab Interpretation (test code = 56366-4) Abnormal [facility] THORAX WO [id number] 14:51:27 HISTORY: Chronic, persistent cough with failed empirical treatment. TECHNIQUE: 64-Multidetector noncontrast enhanced CT of the chest isobtained. FINDINGS: Patchy areas of lung volume loss with peripherally basedpulmonary fibrosis and cylindrical bronchiectasis is noted with areas ofsubpleural honeycombing. There is slightly more involvement of the lungbases. Slightly enlarged lymph nodes are seensurrounding the trachea and thesuperior mediastinum, subcarinal space. Lymph nodes measure up to 9 mm inshort axis dimension. Calcification is seen in several subcarinal and rightinfrahilar lymph nodes. No pleural effusion or pericardial effusion. No focal pulmonarynodularities. No pneumomediastinum or pneumothorax. No focal lesions visualized in the thyroid gland. Trachea and centralbronchial airways appear normal but peripheral bronchial airways in theinvolved portions of the lungs showed traction/cylindrical bronchiectasis Upper abdominal organs showed faint 2 mm nonobstructing stone in the upperpole of the left kidney. Dense fibroglandular breast tissue seen on bothsides. No compressiondeformity in the thoracic vertebral bodies are anyaggressive bone lesions seen. CONCLUSIONS: Abnormal pulmonary findings consistent with idiopathicpulmonary fibrosis with peripheral subpleural honeycombing of lungparenchyma and traction bronchiectasis. Some of the more groundglass hazyopacities in the lower lungs could be caused by organizing pneumonia. [facility] Molecular [id number] 15:24:51* Test Item Value Reference Range Interpretation Comme nts POCT Molecular FluA (test co de = 98467-0) Negative Negative POCT Molecular FluB (test co de = 15665-6) Negative Negative Lab Interpretation (test cod e = 90799-4) Normal [facility]ST 2 [id number] 18:28:51EXAM: XR CHEST 2 VW COMPARISON: None available HISTORY: prolonged exposure to second hand smoke FINDINGS: Lungs: Low lung volumes associated with coarse interstitial prominence andperibronchial cuffing. Suggestion of subcentimeter nodularity especially inthe upper lung fernandez. Mild to moderate elevation of the right diaphragm ofuncertain chronicity. Heart/Mediastinum: The cardiomediastinal silhouette is unremarkable. Bones and soft tissues: No osseous lesions visualized.[facility] W/AUTO DIFF WITH PLATELETS 2023-10-15 04:01:16* Test Item Value Reference Range Interpretation Comme nts WBC (test code = 1001) 8.0 K/UL 3.5-11.0 RBC (test code = 1002) 4.58 M/UL 3.80-5.40 HEMOGLOBIN (test code = 1003) 12.5 G/DL 11.5-15.5 HEMATOCRIT (test code = 1004) 38.9 % 34.0-45.0 MCV (test code = 1005) 84.9 fL 80.0-99.0 MCH (test code = 1006) 27.3 PG 25.0-33.0 MCHC (test code = 1007) 32.1 G/DL 31.0-36.0 RDW (test code = 1038) 13.1 % 11.5-15.0 NEUTROPHILS (test code = 1008) 58.7 % LYMPHOCYTES (test code = 1010) 26.0 % MONOCYTES (test code = 1011) 7.7 % EOSINOPHILS (test code = 1012) 6.4 % BASOPHILS (test code = 1013) 0.8 % IMMATURE GRANULOCYTES (test code = 1036) 0.4 % NUCLEATED RBCS (test code = 1065) 0.0 /100 WBC'S See_Comment [Automated message] The system which generated this result transmitted reference range: 0.0. The reference range was not used to interpret this result as normal/abnormal. PLATELET COUNT (test code = 1015) 340 K/UL 130-400 ABSOLUTE NEUTROPHILS (test code = 1066) 4.67 K/UL 1.50-7.50 ABSOLUTE LYMPHOCYTES (test code = 1067) 2.07 K/UL 1.00-4.00 ABSOLUTE MONOCYTES (test code = 1068) 0.61 K/UL 0.20-1.00 ABSOLUTE EOSINOPHILS (test code = 1040) 0.51 K/UL 0.00-0.50 H ABSOLUTE BASOPHILS (test code = 1069) 0.06 K/UL 0.00-0.20 ABS IMMATURE GRANULOCYTES (test code = 1020) 0.03 K/UL 0.00-0.10 ABS NUCLEATED RBCS (test code = 04993) 0.00 K/UL 0.00-0.11 UNLESS OTHER MIGUEL INDICATED, ALL TESTING PERFORMED AT [facility] [address] [place] [id number] HVAC ENGINEERING TECHNICIAN: ROXANA DENIS M.D. CLIA NUMBER [id number] [facility] [place]. [id number] CBC W/AUTO [id number] 00:00:00* Test Item Value Reference Range Interpretation Comme nts WBC (test code = 1001) 8.0 K/UL RBC (test code = 1002) 4.58 M/UL HEMOGLOBIN (test code = 1003) 12.5 G/DL HEMATOCRIT (test code = 1004) 38.9 % MCV (test code = 1005) 84.9 fL MCH (test code = 1006) 27.3 PG MCHC (test code = 1007) 32.1 G/DL RDW (test code = 1038) 13.1 % NEUTROPHILS (test code = 1008) 58.7 % LYMPHOCYTES (test code = 1010) 26.0 % MONOCYTES (test code = 1011) 7.7 % EOSINOPHILS (test code = 1012) 6.4 % BASOPHILS (test code = 1013) 0.8 % IMMATURE GRANULOCYTES (test code = 1036) 0.4 % NUCLEATED RBCS (test code = 1065) 0.0 /100WBC'S PLATELET COUNT (test code = 1015) 340 K/UL ABSOLUTE NEUTROPHILS (test c ode = 1066) 4.67 K/UL ABSOLUTE LYMPHOCYTES (test c ode = 1067) 2.07 K/UL ABSOLUTE MONOCYTES (test cod e = 1068) 0.61 K/UL ABSOLUTE EOSINOPHILS (test c ode = 1040) 0.51 K/UL ABSOLUTE BASOPHILS (test cod e = 1069) 0.06 K/UL ABS IMMATURE GRANULOCYTES (t est code = 1020) 0.03 K/UL ABS NUCLEATED RBCS (test cod e = 23785) 0.00 K/UL Messi SinhaCBC W/AUTO [id number] 00:00:00* Test Item Value Reference Range Interpretation Comme nts WBC (test code = 1001) 8.0 K/UL RBC (test code = 1002) 4.58 M/UL HEMOGLOBIN (test code = 1003) 12.5 G/DL HEMATOCRIT (test code = 1004) 38.9 % MCV (test code = 1005) 84.9 fL MCH (test code = 1006) 27.3 PG MCHC (test code = 1007) 32.1 G/DL RDW (test code = 1038) 13.1 % NEUTROPHILS (test code = 1008) 58.7 % LYMPHOCYTES (test code = 1010) 26.0 % MONOCYTES (test code = 1011) 7.7 % EOSINOPHILS (test code = 1012) 6.4 % BASOPHILS (test code = 1013) 0.8 % IMMATURE GRANULOCYTES (test code = 1036) 0.4 % NUCLEATED RBCS (test code = 1065) 0.0 /100WBC'S PLATELET COUNT (test code = 1015) 340 K/UL ABSOLUTE NEUTROPHILS (test c ode = 1066) 4.67 K/UL ABSOLUTE LYMPHOCYTES (test c ode = 1067) 2.07 K/UL ABSOLUTE MONOCYTES (test cod e = 1068) 0.61 K/UL ABSOLUTE EOSINOPHILS (test c ode = 1040) 0.51 K/UL ABSOLUTE BASOPHILS (test cod e = 1069) 0.06 K/UL ABS IMMATURE GRANULOCYTES (t est code = 1020) 0.03 K/UL ABS NUCLEATED RBCS (test cod e = 93412) 0.00 K/UL Messi Sinha
--- NOTE | 2024-10-07 15:49 | ER ---
Nurse's Notes [facility] Name: Marva Caballero Age: 44 yrs Sex: Female : 1980 Arrival Date: 10/07/2024 Time: 15:06 Bed 7 [employer] MD: Diagnosis: ED Course: 10/07 15:07 Patient arrived in ED. im 15:32 Janeen Woods PA-C is [facility] sb4 15:32 Lance Rod MD is Attending Physician. sb4 15:42 Patient's name was called from ER lobby. No response. Unable to locate patient. Will hb disposition as left without being seen by a provider. Administered Medications: No medications were administered Outcome: 15:48 Patient left the ED. hb Signatures: Tanvi Wheatley RN RN Janeen Jack PA-C PA-C sb4 Maddie Abreu im
== END 2024-10-07 15:48 | disposition left against medical advice (07) ==
LOC: ER 15:06
DX: Z02.9 Encounter for administrative examinations, unspecified (principal)